=== PATIENT | female | born 1975 | race Caucasian/White ===

== ENCOUNTER 2017-04-25 03:53 | Inpatient (IN) | payer OTHER ==
[~2017-04-25] VITALS: Ht 180.3 cm; Wt 132.9 kg
[~2017-04-25 03:53] MED LIST: AROMASIN25 MG PO; CYCLOBENZAPRINE5 MG PO; LEVOTHYROXINE175 MCG PO; PERCOCET 10/1 TABLET PO
[2017-04-25 08:04] VITALS: BP 118/74
[2017-04-25 09:17] LABS: METH RESISTANT S AUREUS PCR NEGATIVE (NEGATIVE)
[2017-04-25 09:18] LABS: PROBE CHECK PASS; SPECIMEN PROCESSING CONTROL PASS
[2017-04-25 11:20] LABS: INTERNAL CONTROL VALID? YES
[2017-04-25 13:15] VITALS: BP 136/87
[2017-04-25 15:20] LABS: HEMATOCRIT 39.4 % (36.0-46.0); MCH 29.2 PG (29.0-34.0); MCHC 33.2 G/DL (30.0-36.0); MCV 87.9 FL (83-99); MEAN PLAT.VOLUME 10.8 uM^3 (9.5-12.4); PLATELET COUNT 217 K/uL (156-360); RBC DIS.WIDTH-CV 13.1 % (11.8-14.6); RBC DIS.WIDTH-SD 42.2 % (39-53); RED BLOOD COUNT 4.48 M/uL (3.80-5.20); WHITE BLOOD COUNT 12.6 K/uL (4.1-10.2)
[2017-04-25 15:41] LABS: ANION GAP 7 MEQ/L (2-14); CHLORIDE 106 MEQ/L (99-109); GFR ESTIMATE (CALCULATED) > 59 mL/min/; GLUCOSE 116 mg/dL (70-99); POTASSIUM 4.3 MEQ/L (3.7-5.4); SAMPLE HEMOLYSIS CHECK 0; SAMPLE ICTERIC CHECK 0; SAMPLE LIPEMIA CHECK 0; SODIUM 141 MEQ/L (136-147); UREA NITROGEN (BUN) 15 mg/dL (9-23)
[2017-04-25 16:00] VITALS: BP 139/89
[2017-04-25 19:14] VITALS: BP 118/79
[2017-04-26 00:12] VITALS: BP 134/97
[2017-04-26 04:59] VITALS: BP 130/86
[2017-04-26 07:01] LABS: HEMATOCRIT 40.8 % (36.0-46.0); MCH 29.2 PG (29.0-34.0); MCHC 32.6 G/DL (30.0-36.0); MCV 89.7 FL (83-99); MEAN PLAT.VOLUME 10.9 uM^3 (9.5-12.4); PLATELET COUNT 240 K/uL (156-360); RBC DIS.WIDTH-CV 13.2 % (11.8-14.6); RBC DIS.WIDTH-SD 43.8 % (39-53); RED BLOOD COUNT 4.55 M/uL (3.80-5.20); WHITE BLOOD COUNT 9.1 K/uL (4.1-10.2)
[2017-04-26 07:15] VITALS: BP 121/82
[2017-04-26 07:22] LABS: ANION GAP 9 MEQ/L (2-14); CHLORIDE 105 MEQ/L (99-109); GFR ESTIMATE (CALCULATED) > 59 mL/min/; GLUCOSE 91 mg/dL (70-99); SAMPLE HEMOLYSIS CHECK 0; SAMPLE ICTERIC CHECK 0; SAMPLE LIPEMIA CHECK 0; SODIUM 142 MEQ/L (136-147); UREA NITROGEN (BUN) 10 mg/dL (9-23)
[2017-04-26] MEDS ORDERED: TRAMADOL HCL50 MG PO (10:44)
[2017-04-26 11:46] VITALS: BP 161/97
[2017-04-26 12:09] VITALS: BP 161/97
== END 2017-04-26 14:00 | disposition home or self-care (01) | DRG 742 ==
LOC: ENRESERV 03:53 → 2EAST 07:22 → 2SOUTH 07:22 → ENRESERV 13:00 → 2SOUTH 13:11 → 2EAST 13:39 → 2SOUTH 15:08 → 2EAST 04-26 14:00
PROVIDERS: Obstetrics & Gynecology Gynecologic Oncology
DX: Z40.02 Encounter for prophylactic removal of ovary(s) (principal); Z68.41 Body mass index [BMI] 40.0-44.9, adult; Z15.01 Genetic susceptibility to malignant neoplasm of breast; L40.50 Arthropathic psoriasis, unspecified; G89.4 Chronic pain syndrome; E03.9 Hypothyroidism, unspecified; E66.01 Morbid (severe) obesity due to excess calories; E78.00 Pure hypercholesterolemia, unspecified; F17.210 Nicotine dependence, cigarettes, uncomplicated; M65.4 Radial styloid tenosynovitis [de Quervain]; Z86.14 Personal history of Methicillin resistant Staphylococcus aureus infection; Z85.3 Personal history of malignant neoplasm of breast; Z86.718 Personal history of other venous thrombosis and embolism; Z80.1 Family history of malignant neoplasm of trachea, bronchus and lung; Z82.49 Family history of ischemic heart disease and other diseases of the circulatory system; Z80.3 Family history of malignant neoplasm of breast; Z80.49 Family history of malignant neoplasm of other genital organs
CPT/HCPCS: 36415; 80048; 84703; 85027; 86850; 86900; 86901; 86920; 87641; 88305; J0131; J0330; J0690; J1170; J1650; J1885; J2250; J2270; J2405; J2710; J2765; J3010; Q0175